=== PATIENT | male | born 1985 | race Hispanic/Latino ===

== ENCOUNTER 2017-07-02 13:34 | Emergency (ER) | payer SELFPAY ==
[2017-07-02 13:39] VITALS: BP 134/82; PULSE 81; RESP 16; TEMP 98; O2SAT 99
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
--- NOTE | 2017-07-02 14:16 | RAD ---
PROCEDURE: Right Hand Radiographs. HISTORY: trauma attn 1st digit COMPARISON: None. FINDINGS: BONES: Current study reveals no evidence of acute displaced fracture nor dislocation. The osseous structures appear intact JOINTS: Joint spaces preserved. No significant osteoarthritis. SOFT TISSUES: Mild localized soft tissue swelling surrounding the PIP joint 2nd finger OTHER FINDINGS: None. IMPRESSION: No evidence of acute displaced fracture nor dislocation. Mild localized soft tissue swelling surrounding the PIP joint 2nd finger
[2017-07-02] MEDS ORDERED: Lidocaine 1% Inj (20ml) IJ STA (14:22)
[2017-07-02] MEDS ORDERED: Lidocaine 1% Inj (20ml) ONE (14:24)
[2017-07-02] MEDS ORDERED: Absorbable Gelatin Sponge Size 12-7 ONE (14:56)
[2017-07-02] MEDS ORDERED: Oxycodone/Acetaminophen 5/325 mg Tab PO STA (15:34)
[2017-07-02] MEDS ORDERED: Oxycodone/Acetaminophen 5/325 mg Tab ONE (15:44)
== END 2017-07-02 15:50 | disposition home or self-care (01) ==
LOC: H.ER 13:34
DX: S69.91XA Unspecified injury of right wrist, hand and finger(s), initial encounter (principal); S62.501A Fracture of unspecified phalanx of right thumb, initial encounter for closed fracture; W20.8XXA Other cause of strike by thrown, projected or falling object, initial encounter; Y93.89 Activity, other specified